=== PATIENT | female | born 1985 | race Two or more races ===

== ENCOUNTER 2022-07-06 10:08 | Outpatient (CLI) | payer OTHER | END 2022-07-06 10:13 | disposition home or self-care (01) | LOC: SONOGRAMA 10:08 | PROVIDERS: ATTEND Pathology Anatomic Pathology & Clinical Pathology | DX: E04.2 Nontoxic multinodular goiter (principal); E06.3 Autoimmune thyroiditis; D44.0 Neoplasm of uncertain behavior of thyroid gland ==